=== PATIENT | female | born 1995 | race Caucasian/White ===

== ENCOUNTER 2019-06-02 17:37 | Emergency (ER) | payer OTHER ==
[~2019-06-02] VITALS: Ht 157.5 cm; Wt 74.8 kg
[~2019-06-02 17:37] MED LIST: ALBUTEROL2.5 MG/31 INH; TESSALON PERLE100 MG PO
[2019-06-02] MEDS ORDERED: CELEXA10 MG PO (17:49)
[2019-06-02] MEDS ORDERED: ROBAXIN 750 MG750 MG PO (17:50)
[2019-06-02 18:21] LABS: URINE BILIRUBIN NEGATIVE (Negative); URINE BLOOD NEGATIVE (Negative); URINE CLARITY CLEAR; URINE COLOR YELLOW; URINE GLUCOSE-RANDOM NEGATIVE (Negative); URINE KETONES NEGATIVE (Negative); URINE LEUKOCYTES-REFLEX NEGATIVE (Negative); URINE NITRITE-REFLEX NEGATIVE (Negative); URINE PROTEIN NEGATIVE (Negative); URINE SPECIFIC GRAVITY 1.025 (1.005-1.030); URINE UROBILINOGEN 0.2 E.U./dl (0.2-1.0)
[2019-06-02 18:22] LABS: ABSOLUTE BASOPHILS 0.1 thou/uL (0.0-0.2); ABSOLUTE EOSINOPHILS 0.1 thou/uL (0.0-0.7); ABSOLUTE LYMPHOCYTES 2.4 thou/uL (0.8-5.3); ABSOLUTE MONOCYTES 0.4 thou/uL (0.0-1.2); ABSOLUTE NEUTROPHILS 4.3 thou/uL (1.6-8.1); BASOPHILS 0.9 %; EOSINOPHILS 1.4 %; HEMATOCRIT 40.3 % (37.0-47.0); HEMOGLOBIN 14.2 gm/dL (12.0-15.0); LYMPHOCYTES 33.2 %; MCH 31.3 pg (26.0-34.0); MCHC 35.1 g/dL (28.0-37.0); MCV 89.1 fL (80.0-100.0); MONOCYTES 5.8 %; MPV 8.2 fl. (7.2-11.1); NUCLEATED RBCS 0 /100WBC; PLATELET COUNT* 248 thou/uL (150-400); POLYS 58.7 %; RBC 4.52 mil/uL (4.20-5.00); RDW-CV 12.8 % (10.5-14.5); WBC 7.3 thou/uL (4.0-11.0)
[2019-06-02 18:29] LABS: CALCIUM 8.7 mg/dL (8.5-10.1); CREATININE 0.9 mg/dL (0.6-1.3); POTASSIUM 3.5 mmol/L (3.5-5.1)
[2019-06-02 18:40] LABS: ALBUMIN 4.3 g/dL (3.4-5.0); TOTAL BILIRUBIN 0.2 mg/dL (<0.1-1.0); TOTAL PROTEIN 8.4 g/dL (6.4-8.2)
[2019-06-02 19:20] LABS: INFLUENZA A ANTIGEN Negative (Negative); INFLUENZA B ANTIGEN Negative (Negative)
[2019-06-02 22:24] VITALS: BP 115/71
== END 2019-06-02 22:25 | disposition home or self-care (01) ==
LOC: M.ERS 17:37
PROVIDERS: Personal Emergency Response Attendant
DX: R55 Syncope and collapse (principal); R42 Dizziness and giddiness; R11.0 Nausea

== ENCOUNTER 2019-08-26 23:18 | Emergency (ER) | payer OTHER ==
[~2019-08-26] VITALS: Ht 157.5 cm; Wt 83.9 kg
[~2019-08-26 23:18] MED LIST changes: +CELEXA10 MG PO; +ROBAXIN 750 MG750 MG PO
[2019-08-26 23:22] VITALS: BP 106/73
[2019-08-26] MEDS ORDERED: ENBRACE HR SOF1 EACH PO (23:29)
[2019-08-26] MEDS ORDERED: AUGMENTIN 875-1 EACH PO (23:40)
== END 2019-08-26 23:46 | disposition home or self-care (01) ==
LOC: M.ERS 23:18
DX: O9A.212 Injury, poisoning and certain other consequences of external causes complicating pregnancy, second trimester (principal); S61.552A Open bite of left wrist, initial encounter; S61.532A Puncture wound without foreign body of left wrist, initial encounter; Z3A.16 16 weeks gestation of pregnancy; W54.0XXA Bitten by dog, initial encounter; Y93.89 Activity, other specified; Y92.89 Other specified places as the place of occurrence of the external cause; Y99.8 Other external cause status

== ENCOUNTER 2020-12-10 12:52 | Emergency (ER) | payer OTHER ==
[~2020-12-10] VITALS: Ht 157.5 cm; Wt 99.8 kg
[~2020-12-10 12:52] MED LIST changes: +AUGMENTIN 875-1 EACH PO; +ENBRACE HR SOF1 EACH PO
[2020-12-10 13:04] VITALS: BP 109/78
[2020-12-10] MEDS ORDERED: TOPAMAX100 MG PO (13:06)
[2020-12-10] MEDS ORDERED: LEXAPRO20 MG PO (13:06)
== END 2020-12-10 15:34 | disposition left against medical advice (07) ==
LOC: M.ERS 12:52
DX: H92.01 Otalgia, right ear (principal); Z53.21 Procedure and treatment not carried out due to patient leaving prior to being seen by health care provider